=== PATIENT | male | born 1980 | race Caucasian/White ===

== ENCOUNTER 2022-08-31 19:57 | Emergency (ER) | payer BC, MEDICAID ==
[~2022-08-31] VITALS: Ht 175.3 cm; Wt 113.4 kg
[2022-08-31 20:20] VITALS: BP_SYST 160
[2022-08-31] MEDS ORDERED: DIPHTH,PERTUSS(ACELL),TET VAC 0.5 ML VIAL (Tdap) I.M. ONE (20:45)
[2022-08-31] MEDS ORDERED: AUG875 PO (21:44)
[2022-08-31 22:05] VITALS: BP_SYST 158
== END 2022-08-31 22:05 | disposition home or self-care (01) ==
LOC: SED 21:12
DX: S51.841A Puncture wound with foreign body of right forearm, initial encounter (principal); I10 Essential (primary) hypertension; Z79.899 Other long term (current) drug therapy; W54.0XXA Bitten by dog, initial encounter; Y93.89 Activity, other specified; Y92.89 Other specified places as the place of occurrence of the external cause; Y99.8 Other external cause status
CPT/HCPCS: 90715; 99283